=== PATIENT | male | born 1955 | race Caucasian/White ===

== ENCOUNTER → 2017-04-04 | Outpatient (CLI) | payer BC ==
[~2017-04-04] VITALS: Ht 180.3 cm; Wt 104.3 kg
[~2017-04-04] MED LIST: ASPIR 8181 MG PO; CRESTOR20 MG PO; GLIPIZIDE 10 MG10 MG PO; JARDIANCE10 MG PO; LISINOPRIL10 MG PO; METFORMIN HCL500 MG PO
--- NOTE | ~2017-04-04 | CATHLAB ---
[facility] [employer] [place] [address] INVASIVE PROCEDURE REPORT Name: FIDELIA GARRISON [id number] Admission: 04/04/17 Attend Phys: Lee Aaron, Discharge: Date of : 55 Date of Service: 04/04/17 1246 Report #: [id number] THIS REPORT FOR: //name// APPROVED REPORT Patient Details Patient Status: Out-Patient Room #: The patient is a 61 year-old male Event Personnel Lee Aaron Software Test Technician, oJy Huitron, Luana Barnard RTR, Tara Taylor Wes RN, Linda, Sumaya CHEUNG steam frame operator Performed Coronary Angiography Only 5437607 ZAC Supravalvular Aortography Injection 2389232 ISVA Indication Valvular heart disease Procedure Narrative The Right Groin^ was infiltrated with 1% Lidocaine subcutaneous anesthesia. A PINNACLE 6FR Sheath #[id number] sheath was inserted into the RFA^. Coronary angiography was performed using coronary diagnostic catheters. The right coronary system was accessed and visualized with a JR4 catheter. The left coronary system was accessed and visualized with a JL5 6FR JL5 #[id number] catheter. An aortogram of the ascending aorta was performed. Closure device was deployed with a 6 Fr MYNXGRIP 6/7F #[id number]. The patient tolerated the procedure well and there were no complications associated with the procedure. There was no hematoma. Supravalvular aortography: Calcified and stenotic aortic valve. Mildly insufficient. Mild dilatation of the thoracic ascending aorta. No dissection. Intraoperative Conscious Sedation Sedation start time: 8.08 Case end Time: 8.25 Fentanyl 25 mcg Versed 1.5 mg Fluoro Time: 2.57 minutes Dose: DAP 4962.20 cGycm2 497 mGy Contrast Type and Amount: Omnipaque 130 ml Coronary Angiography [facility] [employer] [place] [address] INVASIVE PROCEDURE REPORT Name: FIDELIA GARRISON Room #: REG [facility]#: [id number] Admission: 04/04/17 Attend Phys: Lee Aaron, Discharge: Date of : 55 Date of Service: 04/04/17 1246 Report #: [id number] The patient's coronary anatomy is right dominant. Diagnostic Cath Left Main Normal LAD The LAD is a large vessel extending to the inferoapex. The LAD is angiographically normal Circumflex Relatively small and nondominant. Angiographically normal Right Coronary Normal throughout its course R PDA Normal RPLV Normal Ramus Large ramus branch off of the left main, bifurcating in its midportion, angiographically normal Left Ventriculography Left Ventriculography was not performed. Hemodynamics The aortic pressure is 145/74 mmHg with a mean of 103 mmHg. Conclusion 1. Calcific aortic stenosis. Dilatation of the thoracic aorta 2. Normal coronary vasculature. Right coronary dominant circulation <ELECTRONICALLY SIGNED> By: Lee Aaron MD, [facility] 04/04/17 1246 1246 1246 Lee Aaron MD, FAC /INF
--- NOTE | ~2017-04-04 | EKG ---
[address] [address] ELECTROCARDIOGRAM REPORT Name: FIDELIA GARRISON [id number] Admission: 04/04/17 Attend Phys: Lee Aaron MD, Discharge: Date of : 55 Report #: [id number] THIS REPORT FOR: //name// [facility] Test Date: 2017-04-04 Test Time: 07:14:19 Pat Name: FIDELIA GARRISON Department: Room: Gender: M Aesthetician: Zackery BOYLE : 1955 Requested By: Lee Aaron Order Number: [id number] MD: Yuniel Willams Measurements Intervals [place] Rate: 66 P: 36 NM: 49 QRS: -13 QRSD: 95 T: 2 QT: 393 QTc: 412 Interpretive Statements Sinus rhythm Short NM interval Inferior infarct, old Lateral leads are also involved No previous ECG available for comparison Electronically Signed On 04-04-2017 8:13:48 [employer]AT BUILDER AND REPAIRER by Yuniel Willams [email or web address] <ELECTRONICALLY SIGNED> By: Yuniel Willams MD 04/04/1713 D: 02713 3 Yuniel Willams MD /SHERRI
[2017-04-04 07:01] VITALS: BP 121/68
[2017-04-04 07:30] LABS: HEMATOCRIT 44.8 % (42.0-52.0); HEMOGLOBIN 15.1 gm/dL (14.0-18.0); MCH 28.9 pg (26.0-34.0); MCHC 33.6 g/dL (28.0-37.0); MCV 85.8 fL (80.0-100.0); RBC 5.23 mil/uL (4.50-6.00); RDW 13.2 % (10.5-14.5); WBC 7.5 thou/uL (4.0-11.0)
[2017-04-04 07:38] LABS: CALCIUM 8.6 mg/dL (8.5-10.1); CREATININE 0.9 mg/dL (0.7-1.3); POTASSIUM 3.6 mmol/L (3.5-5.1)
== END | disposition home or self-care (01) ==
LOC: CATH 06:38
PROVIDERS: Internal Medicine
DX: I35.0 Nonrheumatic aortic (valve) stenosis (principal)

== ENCOUNTER → 2019-11-06 | Outpatient (CLI) | payer BC | LOC: SJCVCIMAG 09:54 | PROVIDERS: ATTEND Internal Medicine | DX: I08.2 Rheumatic disorders of both aortic and tricuspid valves (principal); I11.9 Hypertensive heart disease without heart failure; E78.5 Hyperlipidemia, unspecified; I71.6 Thoracoabdominal aortic aneurysm, without rupture; Z95.3 Presence of xenogenic heart valve ==

== ENCOUNTER → 2019-11-13 | Outpatient (CLI) | payer BC | LOC: RAD 15:13 | PROVIDERS: ATTEND Internal Medicine | DX: Z01.812 Encounter for preprocedural laboratory examination (principal); I35.0 Nonrheumatic aortic (valve) stenosis ==

== ENCOUNTER → 2021-03-01 | Outpatient (CLI) | payer BC | LOC: SJCVCIMAG 10:39 | PROVIDERS: ATTEND Internal Medicine | DX: I08.1 Rheumatic disorders of both mitral and tricuspid valves (principal); Z95.2 Presence of prosthetic heart valve ==